=== PATIENT | female | born 1975 | race Two or more races ===

== ENCOUNTER 2025-03-04 19:57 | Inpatient (IN) | payer OTHER ==
[~2025-03-04] VITALS: Ht 152.4 cm; Wt 86.2 kg
[2025-03-04] MEDS ORDERED: TENORMIN25 MG PO (20:12)
[2025-03-04] MEDS ORDERED: ACETAMINOPHEN 500 MG GEL..CAP PO PRN (20:45)
[2025-03-04 21:06] LABS: BASO % 0.4 % (0.1-1.2); EOS # 0.00 (0.04-0.54); EOS % 0.0 % (0.7-7.0); LYMPH # 0.51 (1.18-3.74); LYMPH % 20.7 % (19.3-53.1); MEAN PLATELET VOLUME 11.30 fl (9.4-12.4); MONO # 0.11 (0.24-0.82); MONO % 4.5 % (4.7-12.5); NEUT # 1.82 (1.56-6.13); NEUT % 74.0 % (34.0-71.1); RED CELL DISTRIBUTION WIDTH 12.8 % (11.6-14.4)
[2025-03-04 21:29] LABS: ALT/SGPT 336.0 U/L (12-78); AST/SGOT 547.0 U/L (15-37); BILIRUBIN TOTAL 0.5 mg/dL (0.3-1.2); BUN CREA RATIO 11.0 (7.0-25.0); CREATININE SERUM 0.83 mg/dL (0.55-1.02); GFR 72.47; GLOBULINA 3.7 G/DL (2.4-3.5); GLUCOSE FASTING 139.0 mg/dL (65-100); INR 1.44; OSMOLALITY SERUM 267.0 MOSM/KG (275-295)
[2025-03-04 22:04] LABS: BAND MAN 3.0 %; LYMPHOCYTE MAN 11.0 %; MONOCYTE MAN 4.0 %
[2025-03-04 22:05] LABS: NEUTROPHILS MAN 81.0 %
[2025-03-04] MEDS ORDERED: PANTOPRAZOLE SODIUM 40 MG/VIAL VIAL IV SCH (22:14)
[2025-03-04] MEDS ORDERED: ONDANSETRON HCL 4 MG in 0.9 % SODIUM CHLORIDE 50 ML IV PRN (22:15)
[2025-03-04] MEDS ORDERED: 0.9 % SODIUM CHLORIDE 1,000 ML IV SCH (22:15)
[2025-03-05 01:02] LABS: URINE APPEARANCE Clear; URINE BILIRRUBIN Small (NEGATIVE); URINE BLOOD Negative; URINE COLOR Dark Yellow; URINE GLUCOSE Negative (NEGATIVE); URINE KETONE 15 (NEGATIVE); URINE LEUKOCYTE Trace; URINE NITRATE Negative; URINE UROBILINOGEN 1.0 E.U./dl
[2025-03-05 01:05] LABS: URINE BACTERIA 1939.0 uL (0.0-1933); URINE CAST 1.61 uL (0.0-1.40); URINE EPITHELIAL CELLS 27.6 uL (0.0-38.8); URINE RBC 20.9 uL (0.0-20.8); URINE WBC 12.1 uL (0.0-23.2)
[2025-03-05 01:06] LABS: URINE PROTEIN 100 (NEGATIVE)
[2025-03-05 01:23] LABS: COVID-19 AG NEGATIVE (NEGATIVE)
[2025-03-05 06:03] LABS: BASO % 0.7 % (0.1-1.2); EOS # 0.01 (0.04-0.54); EOS % 0.4 % (0.7-7.0); LYMPH # 1.08 (1.18-3.74); LYMPH % 39.4 % (19.3-53.1); MEAN PLATELET VOLUME 11.60 fl (9.4-12.4); MONO # 0.16 (0.24-0.82); MONO % 5.8 % (4.7-12.5); NEUT # 1.44 (1.56-6.13); NEUT % 52.6 % (34.0-71.1); RED CELL DISTRIBUTION WIDTH 12.5 % (11.6-14.4)
[2025-03-05 08:00] VITALS: BP 126/81; O2SAT 95
[2025-03-05] MEDS ORDERED: ATENOLOL 25 MG TABLET PO SCH (09:00)
[2025-03-05 16:05] VITALS: BP 142/84; O2SAT 96
[2025-03-05 17:09] LABS: BASO % 0.3 % (0.1-1.2); EOS # 0.02 (0.04-0.54); EOS % 0.6 % (0.7-7.0); LYMPH # 1.47 (1.18-3.74); LYMPH % 45.7 % (19.3-53.1); MEAN PLATELET VOLUME 10.10 fl (9.4-12.4); MONO # 0.17 (0.24-0.82); MONO % 5.3 % (4.7-12.5); NEUT # 1.52 (1.56-6.13); NEUT % 47.2 % (34.0-71.1); RED CELL DISTRIBUTION WIDTH 12.6 % (11.6-14.4)
[2025-03-05 17:33] LABS: BAND MAN 2.0 %; BASOPHIL MAN 2.0 %; EOSINOPHIL MAN 2.0 %; LYMPHOCYTE MAN 26.0 %; MONOCYTE MAN 8.0 %; NEUTROPHILS MAN 54.0 %
[2025-03-05] MEDS ORDERED: MULTIVIT INFUSN,ADULT 4,VIT K 10 ML VIAL IV SCH (18:46)
[2025-03-05] MEDS ORDERED: Cyanocobalamin/Mecobalamin 1 TAB.SL SL SCH (18:46)
[2025-03-06 01:00] VITALS: BP 129/84; O2SAT 96
[2025-03-06 07:24] LABS: BASO % 0.9 % (0.1-1.2); EOS # 0.06 (0.04-0.54); EOS % 1.0 % (0.7-7.0); LYMPH # 2.45 (1.18-3.74); LYMPH % 42.1 % (19.3-53.1); MEAN PLATELET VOLUME 12.10 fl (9.4-12.4); MONO # 0.36 (0.24-0.82); MONO % 6.2 % (4.7-12.5); NEUT # 2.84 (1.56-6.13); NEUT % 48.8 % (34.0-71.1); RED CELL DISTRIBUTION WIDTH 12.5 % (11.6-14.4)
[2025-03-06 07:45] LABS: ALT/SGPT 361.0 U/L (12-78); AST/SGOT 504.0 U/L (15-37); BILIRUBIN TOTAL 0.67 mg/dL (0.3-1.2); BUN CREA RATIO 13.0 (7.0-25.0); CREATININE SERUM 0.63 mg/dL (0.55-1.02); GFR 99.62; GLOBULINA 2.9 G/DL (2.4-3.5); GLUCOSE FASTING 111.0 mg/dL (65-100); LDH 991.0 U/L (84-246); OSMOLALITY SERUM 278.0 MOSM/KG (275-295)
[2025-03-06 08:34] VITALS: BP 120/80; O2SAT 96
[2025-03-06] MEDS ORDERED: POTASSIUM CHLORIDE 20MEQ/100ML H2O PB IV NR (11:45)
[2025-03-06 17:49] VITALS: BP 133/71; O2SAT 97
[2025-03-07 03:00] VITALS: BP 148/86; O2SAT 97
[2025-03-07 08:00] VITALS: BP 134/86; O2SAT 96
[2025-03-07 08:06] VITALS: BP 134/86; O2SAT 96
[2025-03-07 08:44] LABS: BASO % 0.6 % (0.1-1.2); EOS # 0.15 (0.04-0.54); EOS % 2.2 % (0.7-7.0); LYMPH # 3.49 (1.18-3.74); LYMPH % 52.2 % (19.3-53.1); MEAN PLATELET VOLUME 11.20 fl (9.4-12.4); MONO # 0.49 (0.24-0.82); MONO % 7.3 % (4.7-12.5); NEUT # 2.47 (1.56-6.13); NEUT % 37.0 % (34.0-71.1); RED CELL DISTRIBUTION WIDTH 12.8 % (11.6-14.4)
[2025-03-07 17:00] VITALS: BP 133/86; O2SAT 95
[2025-03-08 00:48] VITALS: BP 143/81; O2SAT 96
[2025-03-08 07:55] LABS: BASO % 0.7 % (0.1-1.2); EOS # 0.31 (0.04-0.54); EOS % 4.4 % (0.7-7.0); LYMPH # 2.97 (1.18-3.74); LYMPH % 42.1 % (19.3-53.1); MEAN PLATELET VOLUME 11.80 fl (9.4-12.4); MONO # 0.66 (0.24-0.82); MONO % 9.3 % (4.7-12.5); NEUT # 2.99 (1.56-6.13); NEUT % 42.4 % (34.0-71.1); RED CELL DISTRIBUTION WIDTH 12.6 % (11.6-14.4)
[2025-03-08 08:00] VITALS: BP 143/82
[2025-03-08 09:06] LABS: ALT/SGPT 223.0 U/L (12-78); AST/SGOT 224.0 U/L (15-37); BILIRUBIN TOTAL 0.72 mg/dL (0.3-1.2); BUN CREA RATIO 8.0 (7.0-25.0); CREATININE SERUM 0.52 mg/dL (0.55-1.02); GFR 124.32; GLOBULINA 3.1 G/DL (2.4-3.5); GLUCOSE FASTING 95.0 mg/dL (65-100); OSMOLALITY SERUM 280.0 MOSM/KG (275-295)
[2025-03-08 17:54] VITALS: BP 139/75; O2SAT 96
[2025-03-09 08:00] VITALS: BP 133/82; O2SAT 97
[2025-03-09 12:46] LABS: RED CELL DISTRIBUTION WIDTH 12.9 % (11.6-14.4)
[2025-03-09 12:47] LABS: BASO % 0.6 % (0.1-1.2); EOS % 3.8 % (0.7-7.0); LYMPH % 38.0 % (19.3-53.1); MEAN PLATELET VOLUME 12.10 fl (9.4-12.4); MONO % 10.4 % (4.7-12.5); NEUT # 3.01 (1.56-6.13); NEUT % 45.4 % (34.0-71.1)
[2025-03-09 12:48] LABS: EOS # 0.25 (0.04-0.54); LYMPH # 2.52 (1.18-3.74); MONO # 0.69 (0.24-0.82)
[2025-03-09] MEDS ORDERED: Neurin-Sl Tablet Sl SL ×2 (16:08→16:17)
[2025-03-09] MEDS ORDERED: ATENOLOL25 MG PO ×2 (16:08→16:17)
[2025-03-09] MEDS ORDERED: B Complex PO ×2 (16:08→16:17)
== END 2025-03-09 16:27 | disposition home or self-care (01) | DRG 866 ==
LOC: ER 19:57 → SURG 22:42
PROVIDERS: General Practice; Internal Medicine Hematology & Oncology; ADMIT Internal Medicine; ATTEND Internal Medicine
PROC: BW40ZZZ Ultrasonography of Abdomen (ICD-10-PCS; 2025-03-04)
PROC: 30233R1 Transfusion of Nonautologous Platelets into Peripheral Vein, Percutaneous Approach (ICD-10-PCS; principal; 2025-03-05)
PROC: BW28ZZZ Computerized Tomography (CT Scan) of Head (ICD-10-PCS; 2025-03-05)
PROC: BW21Y0Z Computerized Tomography (CT Scan) of Abdomen and Pelvis using Other Contrast, Unenhanced and Enhanced (ICD-10-PCS; 2025-03-06)
DX: A90 Dengue fever [classical dengue] (principal); E86.0 Dehydration; D69.6 Thrombocytopenia, unspecified; I10 Essential (primary) hypertension; E78.5 Hyperlipidemia, unspecified; E87.6 Hypokalemia